=== PATIENT | male | born 1985 | race Caucasian/White ===

== ENCOUNTER 2016-02-17 16:24 | Emergency (ER) | payer BC ==
[~2016-02-17] VITALS: Ht 175.3 cm; Wt 81.8 kg
[~2016-02-17 16:24] MED LIST: ATIVAN 0.50.5 MG/TAB PO; CELEXA10 MG PO; LOVAZA1 GM PO; PREDNISONE20 MG PO; PRINIVIL20 MG PO; PRINIVIL40 MG PO; ZYLOPRIM 100MG100 MG PO
[2016-02-17 16:26] VITALS: TEMP 97.9
[2016-02-17] MEDS ORDERED: SODIUM BICARBO650 MG PO (16:28)
[2016-02-17] MEDS ORDERED: LOPRESSOR 550 MG/TAB PO (16:29)
[2016-02-17] MEDS ORDERED: LEXAPRO 10MG10 MG PO (16:29)
[2016-02-17 17:02] LABS: BASO % 0.5 % (0.0-2.0); EOS % 0.2 % (0-4.0); GRAN # 2.5 (1.4-6.5); GRAN % 62.2 % (42.2-75.2); HEMATOCRIT 26.2 % (42.0-52.0); HEMOGLOBIN 8.8 g/dl (13.5-18.0); LYMPH # 0.9 (1.2-3.4); LYMPH % 22.5 % (20.0-51.0); MEAN CELL VOLUME 89 fl (80.0-100.0); MEAN CORPUSCULAR HEMOGLOBIN 30 pg (27.0-31.0); MEAN CORPUSCULAR HGB CONC 34 g/dl (33.0-37.0); MEAN PLATELET VOLUME 9.7 fl (7.4-10.4); MONO # 0.6 (0.1-0.6); MONO % 14.4 % (1.7-9.3); PLATELET COUNT 199 K/mm3 (130-400); RED BLOOD COUNT 2.96 M/mm3 (4.20-5.60); REDCELL DISTRIBUTION WIDTH-CV 12.9 % (11.5-14.5); WHITE BLOOD COUNT 4.1 K/mm3 (4.8-10.8)
[2016-02-17 17:16] LABS: ADJUSTED CALCIUM 9.1 mg/dL (8.4-10.2); BILIRUBIN,TOTAL 0.4 mg/dL (0.0-1.0); CALCIUM 8.3 mg/dL (8.4-10.2); POTASSIUM 4.4 mmol/L (3.4-5.0)
[2016-02-17 17:18] LABS: CREATININE, serum 6.94 mg/dL (0.66-1.25)
[2016-02-17 18:08] VITALS: BP 133/89; PULSE 70
== END 2016-02-17 18:17 | disposition left against medical advice (07) ==
LOC: COL.ER 16:24
PROVIDERS: Emergency Medicine
DX: N17.9 Acute kidney failure, unspecified (principal); H54.7 Unspecified visual loss; I12.9 Hypertensive chronic kidney disease with stage 1 through stage 4 chronic kidney disease, or unspecified chronic kidney disease; N18.4 Chronic kidney disease, stage 4 (severe)